=== PATIENT | male | born 1995 | race Caucasian/White ===

== ENCOUNTER 2016-07-30 14:54 | Emergency (ER) | payer BC, OTHER ==
[~2016-07-30] VITALS: Ht 193 cm; Wt 87.5 kg
[~2016-07-30 14:54] MED LIST: CYCL10TA6 PO
[2016-07-30 15:07] VITALS: TEMP 36.8; Ht 193 cm; Wt 87.5 kg
[2016-07-30] MEDS ORDERED: ONDANSETRON 4MG OD TAB PO STA (15:44)
[2016-07-30] MEDS ORDERED: ACETAMINOPHEN 500 MG TAB PO STA (15:44)
[2016-07-30] MEDS ORDERED: AMPH15CA7 PO (16:00)
[2016-07-30] MEDS ORDERED: IBUP-103 PO (16:01)
--- NOTE | 2016-07-30 16:37 | DIAGNOSTIC IMAGING REPORT ---
CT SCAN OF THE BRAIN WITHOUT IV CONTRAST CLINICAL HISTORY: Fall. Headache. COMPARISON STUDY: No priors. TECHNIQUE: Unenhanced axial CT scan of the brain is performed from the vertex to the skull base. Automated dose control exposure was utilized. CT DOSE: 614.27 mGy.cm FINDINGS: Brain parenchyma: The brain parenchyma is normal in appearance. There is no hemorrhage, mass effect, or evidence of acute territorial ischemia by CT criteria. Saldivar-white matter is preserved. No extra-axial fluid collection is seen. Ventricles, sulci, cisterns: Normal in configuration. Intracranial vasculature: The visualized intracranial vasculature at the skull base is normal in appearance. Calvarium: There is no depressed calvarial fracture. Sinuses and mastoids: The visualized paranasal sinuses are clear. The mastoid air cells are well pneumatized. Orbits: The bony orbits are grossly intact. IMPRESSION: No acute intracranial abnormality. Electronically signed by: August Marti M.D. 07/30/2016 4:35 PM
[2016-07-30 16:56] VITALS: BP 133/63; PULSE 66; O2SAT 99
--- NOTE | 2016-08-01 00:10 | EMERGENCY ROOM VISIT NOTE ---
ED Visit Note First contact with patient: 15:13 Chief Complaint: Head injury. History of Present Illness: Mr. Pillai is a 21-year-old white male who ambulates into the ED accompanied by his father with complaints of a possible head injury. Patient reports he was drinking alcohol last night with friends. Friends bring the patient home and reports to his father that he fell and struck the back of his head on a concrete walk. They also tell the father there was no loss of consciousness. This occurred approximately 11-12 hours ago. Father reports he watched a son all night and he had multiple episodes of vomiting and when asked about the incident he reports he did not remember. Currently patient does report to me that he was drinking liquor last night. He doesn't remember the specific amounts. He confirms he remembers drinking but then being home he does not remember his fall. He denies any drug use. Currently patient is complaining of a throbbing headache in the right parietal area. He rates this discomfort 4.5/10. His pain is nonradiating. Pain worsens when he moves from the sitting to the lying position. He has not identified any alleviating factors related to the pain. He does not remember taking medications but father reports he had Tylenol; he denies any relief of his discomfort. Associated with his pain he reports he is having dizziness, mild blurry vision, nausea. He denies neck pain, back pain, hearing changes, difficulty speaking, difficulty swallowing, chest pain, shortness of breath, abdominal pain, difficulty ambulating/coordinating body movements, extremity weakness/numbness/ tingling. Review of Systems: As noted above in history of present illness. All body systems were reviewed and found to be negative as noted above. Past Medical History: Unspecified stomach disorder, attention deficit disorder. Current Medications: Adderall. Allergies to Medications: Patient denies. Social History: Patient is not currently employed; he lives with his parents in feels safe in his home environment; he admits to tobacco and alcohol use. Physical Examination: Vital Signs: Date Time Temp Pulse Resp B/P Pulse Ox O2 Delivery O2 Flow Rate FiO2 07/30/16 16:56 66 16 133/63 99 07/30/16 15:07 36.8 77 16 123/72 98 Room Air GENERAL: 21-year-old male in mild to moderate distress due to symptoms, nontoxic -appearing, afebrile and hemodynamically stable. NEUROLOGICAL: Awake, alert and oriented to person, place and time. Answering questions appropriately and following commands. Normal gait. Good hand eye coordination. No focal motor sensory deficits. Cranial nerves II through XII grossly intact. Romberg test was unsteady but he passed. Negative pronator drift. Normal rapid alternating movements of the hands and feet. Normal heel mckeon test. Able to spell backwards. Difficulty counting backwards. Able to draw the face of a clock. SKIN: Warm, dry and pink. The occipital area and patient has a 2 x 3 cm contusion that is not elevated. HEENT: Atraumatic and normocephalic. Skull: No bony deformity, bony crepitus or depression. Mild tenderness over his contusion. No raccoon's eyes or wright signs. No drainage from the ears or the nostril; no hemotympanum. Face : No bony deformity, crepitus, swelling or ecchymosis. PERRLA. EOMI without nystagmus. Unable to perform a funduscopic examination due to mild light sensitivity. No malocclusion. No intraoral trauma. Airway patent. Speech normal. Trachea midline. No jugular venous distention. BACK: No tenderness over the bony spine. No CVA tenderness. THORAX: Lungs sounds are clear to auscultation and equal bilaterally with symmetrical chest wall. ABDOMEN: Flat, soft and nontender. Positive bowel sounds in all quadrants. No guarding, rigidity or organomegaly. EXTREMITIES: Moves all extremities well on command and with purpose. All distal neurovascular statuses are intact and equal bilaterally. 5/5 muscle strength in flexion, extension, abduction and abduction of the hips, flexion and extension of the elbows, wrists and knees, pronation and supination of the forearm and plantar flexion and dorsiflexion of the ankles. ED Course: Patient is assessed as noted above. Head CT: Was reviewed by myself and read by the radiologist showing no acute intracranial abnormalities or skull fractures. Patient was given acetaminophen and Zofran for his headache and nausea. Patient and father were educated about tonight's findings and instructed on his treatment plan; they verbalizes understanding and agreement with this plan. Clinical Impression: Concussion. Decision-Making: Initially my differential diagnosis I considered skull fracture , intracranial bleed, concussion and other causes. Disposition: Patient discharged home in stable condition accompanied by his father; prior to departure he was reassessed and subjectively reported he was feeling slightly better with improved pain and resolution of nausea. Plan: Patient was encouraged to use ibuprofen or acetaminophen as needed for head pain. Patient was encouraged use ice on his scalp contusion. Patient was encouraged to rest for the next 48 hours with only light activity like walking. Patient was encouraged to have no sports or significant physical activity for at least 7 days. Patient was encouraged to use no alcohol for the next 48 hours. Patient was encouraged to follow-up with [facility] concussion clinic. Father was encouraged to wake his son every 6 hours and assess his orientation. Father was educated on signs of worsening head injury. Father was encouraged bring his son back to the ED for signs of worsening head injury or any new/concerning symptoms.
== END 2016-07-30 16:58 | disposition home or self-care (01) ==
LOC: C.EDB 14:54 → C.EDD 16:58
DX: S06.0X0A Concussion without loss of consciousness, initial encounter (principal); W18.00XA Striking against unspecified object with subsequent fall, initial encounter; F17.200 Nicotine dependence, unspecified, uncomplicated; F90.0 Attention-deficit hyperactivity disorder, predominantly inattentive type

== ENCOUNTER → 2016-12-28 | Outpatient (CLI) | payer BC ==
[~2016-12-28] MED LIST changes: +AMPH15CA7 PO; -CYCL10TA6 PO; +IBUP-103 PO
--- NOTE | 2016-12-28 13:53 | DIAGNOSTIC IMAGING REPORT ---
RIGHT ELBOW MIN 3 VIEWS CLINICAL HISTORY: Right elbow pain. Trauma. COMPARISON: None. DISCUSSION: The fat pads are not displaced. No fractures or dislocations are visualized. IMPRESSION: No fractures identified. Electronically signed by: Won Spivey M.D. 12/28/2016 1:51 PM Dictated Date/Time: 12/28/2016 1:51 PM
== END | disposition home or self-care (01) ==
LOC: C.RDSM 13:44
PROVIDERS: ATTEND Internal Medicine
DX: M25.529 Pain in unspecified elbow (principal)

== ENCOUNTER → 2016-12-29 | Outpatient (CLI) | payer BC ==
--- NOTE | 2016-12-29 21:30 | DIAGNOSTIC IMAGING REPORT ---
MRI OF THE RIGHT ELBOW WITHOUT IV CONTRAST CLINICAL HISTORY: Right elbow pain. Throwing injury. COMPARISON STUDY: Radiographs of the right elbow dated 12/28/2016. TECHNIQUE: MRI of the right elbow is performed utilizing various T1 and T2-weighted sequences in the axial, sagittal, and coronal planes. IV contrast was not administered for this examination. FINDINGS: Normal marrow signal intensity is preserved throughout the visualized bony structures. There is no MRI evidence of fracture. A small joint effusion is identified. The radial collateral ligament and the common extensor tendon appear intact. There is significant soft tissue edema overlying the medial humeral epicondyle. The common extensor tendon shows mild tendinopathy but appears maintained. There is at least high-grade partial-thickness tearing of the ulnar collateral ligament at the humeral insertion, with fluid seen on both sides of the ligament. Mild intramuscular edema is identified involving several of the extensor muscles. The biceps tendon appears intact, as does the triceps tendon at its insertion. IMPRESSION: 1. There is at least partial thickness tearing of the ulnar collateral ligament at the humeral insertion. Full thickness tearing is not excluded. 2. The common flexor tendon, the common extensor tendon, and the radial collateral alignment appear intact. 3. There is a small joint effusion. No fracture is identified Dictated: 12/29/2016 5:54 PM Transcribed: 12/29/2016 9:29 PM Omar Electronically signed by: August Marti M.D. 12/30/2016 3:20 PM Dictated Date/Time: 12/29/2016 5:54 PM
== END | disposition home or self-care (01) ==
LOC: C.MRI 16:18
PROVIDERS: ATTEND Internal Medicine
DX: M25.521 Pain in right elbow (principal); S53.441A Ulnar collateral ligament sprain of right elbow, initial encounter; X50.0XXA Overexertion from strenuous movement or load, initial encounter; Y93.69 Activity, other involving other sports and athletics played as a team or group